=== PATIENT | male | born 1995 | race Two or more races ===

== ENCOUNTER 2018-06-25 17:02 | Emergency (ER) | payer MEDICAID ==
[~2018-06-25] VITALS: Ht 579.1 cm; Wt 76.2 kg
[2018-06-25] MEDS ORDERED: LIDOCAINE 1%-EPI 1:100,000 20 ML VIAL TP ONE (18:15)
--- NOTE | 2018-06-25 18:15 | NUR ---
PATIENT HERE FOR LACERATION ON HAND. WOUND CLEANSED BY Jama SHAW LVN.
[2018-06-25] MEDS ORDERED: CEphaleXIN 500 MG CAPSULE ONE (18:35)
[2018-06-25] MEDS ORDERED: CEphaleXIN 500 MG CAPSULE PO ONE (18:45)
--- NOTE | 2018-06-25 18:49 | NUR ---
SUTURESPLACD BY DR GLASER. SPLINT PLACEED BY Jama SHAW. PATIENT TOLERATED WELL. DC, RX AND FOLLOW UP INSTRUCTIONS GIVEN AND EXPLAINED TO PATIENT AND CO-WORKER WHO STATE THEY UNDERSTAND ALL INSTRUCTIONS INCLUDING FOLLOW UP WITH HAND SURGEON
== END 2018-06-25 18:53 | disposition home or self-care (01) ==
LOC: ER 17:02
DX: S61.411A Laceration without foreign body of right hand, initial encounter (principal); W26.8XXA Contact with other sharp object(s), not elsewhere classified, initial encounter; Y93.89 Activity, other specified; Y92.89 Other specified places as the place of occurrence of the external cause; Y99.8 Other external cause status
CPT/HCPCS: 12001; 99283; J3490; A4217; A4663